=== PATIENT | male | born 1965 | race Caucasian/White ===

== ENCOUNTER 2018-11-18 05:58 | Inpatient (IN) ==
[2018-11-10 13:13] LABS: Basophils # 0.1 10*3/uL (0.0-0.2); Basophils % 0.7 % (0.0-0.8); Eosinophils # 0.2 10*3/uL (0.0-0.87); Eosinophils % 2.8 % (0.00-10.9); Hemoglobin 16.4 GM/DL (14.0-18.0); Immature Granulocytes % 0.7 %; Immature Granulocytes Absolute 0.06 #; Lymphocytes # 1.9 10*3/uL (1.4-4.0); Mean Corpuscular HGB Conc 32.8 GM/DL (32-36); Mean Corpuscular Volume 87.1 FL (87-102); Monocytes % 11.1 % (1.7-12.7); Neutrophils % 61.7 % (38.7-73.9); Platelet Count 249 T/CUMM (130-400); Red Blood Count 5.74 MC/CUMM (3.8-5.5); Red Cell Distribution Width 14.1 % (9.3-17.3); White Blood Count 8.2 T/CUMM (4-12)
[2018-11-10 13:39] LABS: Bilirubin,Total 0.4 MG/DL (0.2-1.0); Calcium 8.7 MG/DL (8.5-10.1); Osmolality,Calculated 279.1 MOS/KG (273-304); Total Protein 7.1 G/DL (6.4-8.3)
[~2018-11-18 05:58] MED LIST: ALVIMOPAN 12 MG CAPSULE ONE; ERTAPENEM 1,000 MG VIAL ONE; FAMOTIDINE 20 MG TABLET ONE
[2018-11-18] MEDS ORDERED: FAMOTIDINE 20 MG TABLET PO ONE (06:00)
[2018-11-18] MEDS ORDERED: TISSUE ADHESIVE 1 EACH APPLICATOR TOP ONE (06:29)
[2018-11-18] MEDS ORDERED: LIDOCAINE 1% 20 ML VIAL ONE (06:29)
[2018-11-18] MEDS ORDERED: BUPIVACAINE MPF 0.25% 30 ML VIAL ONE ×2 (06:29→09:14)
[2018-11-18] MEDS: LACTATED RINGERS 1,000 ML IV SCH ×2 (06:30→13:54)
[2018-11-18] MEDS ORDERED: ERTAPENEM 1,000 MG in SODIUM CHLORIDE 0.9% 100 ML IV ONE (06:30)
[2018-11-18] MEDS ORDERED: ALVIMOPAN 12 MG CAPSULE PO ONE (06:30)
[2018-11-18] MEDS ORDERED: INDOCYANINE GREEN 25 MG VIAL IV ONE (08:38)
[2018-11-18] MEDS ORDERED: EPINEPHrine 1 MG/ML VIAL ONE (09:13)
[2018-11-18] MEDS ORDERED: DEXAMETHASONE 4 MG/1 ML VIAL ONE ×2 (09:13→09:54)
[2018-11-18] MEDS ORDERED: CETIRIZINE 10 MG TABLET PO PRN (09:34)
[2018-11-18] MEDS ORDERED: PHENYLEPHRINE DRIP 20 MG/250 ML PREMIX IV ONE (09:53)
[2018-11-18] MEDS ORDERED: PROPOFOL 200 MG/20 ML VIAL IV ONE (09:53)
[2018-11-18] MEDS ORDERED: SEVOFLURANE 1 UNIT/15 MINUTE INH ONE (09:53)
[2018-11-18] MEDS ORDERED: PHENYLEPHRINE 1 MG/10 ML SYRINGE IV ONE (09:54)
[2018-11-18] MEDS ORDERED: fentaNYL 100 MCG/2 ML VIAL ONE (09:54)
[2018-11-18] MEDS ORDERED: ONDANSETRON 4 MG/2 ML VIAL ONE (09:54)
[2018-11-18] MEDS ORDERED: MIDAZOLAM 2 MG/2 ML VIAL ONE (09:54)
[2018-11-18] MEDS ORDERED: LACTATED RINGERS 2,000 ML IV ONE (09:55)
[2018-11-18] MEDS ORDERED: ROCURONIUM 100 MG/10 ML VIAL IV ONE (09:55)
[2018-11-18] MEDS ORDERED: SUCCINYLCHOLINE 200 MG/10 ML VIAL ONE (09:55)
[2018-11-18] MEDS ORDERED: SODIUM CHLORIDE 0.9% 250 ML IV ONE (09:56)
[2018-11-18] MEDS ORDERED: LIDOCAINE 2% 5 ML VIAL ONE (09:56)
[2018-11-18] MEDS ORDERED: NEOSTIGMINE 10 MG/10 ML VIAL ONE (10:01)
[2018-11-18] MEDS ORDERED: GLYCOPYRROLATE 0.4 MG/2 ML VIAL ONE (10:01)
[2018-11-18] MEDS ORDERED: ONDANSETRON 4 MG/2 ML VIAL IV PRN (10:02)
[2018-11-18] MEDS ORDERED: HYDROmorphone 2 MG/1 ML VIAL IV PRN (10:02)
[2018-11-18] MEDS: ONDANSETRON 4 MG/2 ML VIAL IV PRN ×2 (10:08→14:15)
[2018-11-18] MEDS: MORPHINE 4 MG/1 ML VIAL IV PRN ×2 (14:15→20:03)
[2018-11-18] MEDS: SIMETHICONE CHEW 125 MG TABLET PO PRN (14:16)
[2018-11-18] MEDS ORDERED: PHENOL 1.4% THROAT SPRAY 177 ML BOTTLE PO PRN (19:42)
[2018-11-18] MEDS: PIPERACILLIN/TAZOBACTAM 3,375 MG in SODIUM CHLORIDE 0.9% 100 ML IV SCH (20:03)
[2018-11-18] MEDS: PROPRANOLOL 40 MG TABLET PO SCH (21:00)
[2018-11-18] MEDS: TAMSULOSIN 0.4 MG CAPSULE PO SCH (21:00)
[2018-11-19] MEDS: DEXTROSE 5% LACTATED RINGERS 1,000 ML IV SCH ×4 (02:04→19:08)
[2018-11-19] MEDS: PIPERACILLIN/TAZOBACTAM 3,375 MG in SODIUM CHLORIDE 0.9% 100 ML IV SCH ×3 (03:04→21:01)
[2018-11-19] MEDS: ENOXAPARIN 40 MG/0.4 ML SYRINGE SUBCUT SCH (03:05)
[2018-11-19 05:12] LABS: Basophils % 0.2 % (0.0-0.8); Hematocrit 51.6 VOL% (42.0-52.0); Hemoglobin 16.6 GM/DL (14.0-18.0); Immature Granulocytes % 0.5 %; Immature Granulocytes Absolute 0.08 #; Lymphocytes # 0.9 10*3/uL (1.4-4.0); Lymphocytes % 5.9 % (21.2-54.2); Mean Corpuscular HGB Conc 32.2 GM/DL (32-36); Mean Corpuscular Volume 88.1 FL (87-102); Mean Platelet Volume 12.1 FL (9.6-12.0); Monocytes % 10.1 % (1.7-12.7); Neutrophils % 83.3 % (38.7-73.9); Platelet Count 225 T/CUMM (130-400); Red Blood Count 5.86 MC/CUMM (3.8-5.5); Red Cell Distribution Width 14.4 % (9.3-17.3); White Blood Count 14.7 T/CUMM (4-12)
[2018-11-19 05:43] LABS: Calcium 8.5 MG/DL (8.5-10.1); Osmolality,Calculated 280.3 MOS/KG (273-304)
[2018-11-19] MEDS ORDERED: TADALAFIL 5 MG PO SCH (09:00)
[2018-11-19] MEDS: PROPRANOLOL 40 MG TABLET PO SCH ×2 (10:03→21:03)
[2018-11-19] MEDS: FAMOTIDINE 20 MG TABLET PO SCH (10:04)
[2018-11-19] MEDS: SIMVASTATIN 10 MG TABLET PO SCH (10:10)
[2018-11-19] MEDS: CELECOXIB 200 MG CAPSULE PO PRN (10:16)
[2018-11-19] MEDS: LACTATED RINGERS 1,000 ML IV SCH (12:56)
[2018-11-19] MEDS: TAMSULOSIN 0.4 MG CAPSULE PO SCH (21:03)
[2018-11-20] MEDS: PIPERACILLIN/TAZOBACTAM 3,375 MG in SODIUM CHLORIDE 0.9% 100 ML IV SCH ×3 (04:27→19:45)
[2018-11-20] MEDS: ENOXAPARIN 40 MG/0.4 ML SYRINGE SUBCUT SCH (04:28)
[2018-11-20] MEDS: DEXTROSE 5% LACTATED RINGERS 1,000 ML IV SCH (05:38)
[2018-11-20] MEDS: CELECOXIB 200 MG CAPSULE PO PRN (10:44)
[2018-11-20] MEDS: PROPRANOLOL 40 MG TABLET PO SCH ×2 (10:44→21:04)
[2018-11-20] MEDS: FAMOTIDINE 20 MG TABLET PO SCH (10:44)
[2018-11-20] MEDS: TAMSULOSIN 0.4 MG CAPSULE PO SCH ×2 (10:45→21:05)
[2018-11-20] MEDS: SIMVASTATIN 10 MG TABLET PO SCH (11:19)
[2018-11-20] MEDS: LACTATED RINGERS 1,000 ML IV SCH (11:20)
[2018-11-21] MEDS: PIPERACILLIN/TAZOBACTAM 3,375 MG in SODIUM CHLORIDE 0.9% 100 ML IV SCH (04:28)
[2018-11-21] MEDS: ENOXAPARIN 40 MG/0.4 ML SYRINGE SUBCUT SCH (04:28)
[2018-11-21 05:16] LABS: Basophils # 0.1 10*3/uL (0.0-0.2); Basophils % 0.7 % (0.0-0.8); Eosinophils # 0.2 10*3/uL (0.0-0.87); Eosinophils % 1.8 % (0.00-10.9); Hemoglobin 15.2 GM/DL (14.0-18.0); Immature Granulocytes % 0.8 %; Immature Granulocytes Absolute 0.07 #; Lymphocytes % 23.2 % (21.2-54.2); Mean Corpuscular HGB Conc 32.3 GM/DL (32-36); Mean Corpuscular Volume 89.7 FL (87-102); Mean Platelet Volume 11.6 FL (9.6-12.0); Monocytes % 15.1 % (1.7-12.7); Neutrophils % 58.4 % (38.7-73.9); Platelet Count 157 T/CUMM (130-400); Red Blood Count 5.24 MC/CUMM (3.8-5.5); White Blood Count 8.8 T/CUMM (4-12)
[2018-11-21] MEDS: SIMETHICONE CHEW 125 MG TABLET PO PRN (09:21)
[2018-11-21] MEDS: PROPRANOLOL 40 MG TABLET PO SCH (09:21)
[2018-11-21] MEDS: FAMOTIDINE 20 MG TABLET PO SCH (09:22)
[2018-11-21] MEDS: SIMVASTATIN 10 MG TABLET PO SCH (09:22)
[2018-11-21] MEDS: LACTATED RINGERS 1,000 ML IV SCH (09:22)
[2018-11-21] MEDS: TAMSULOSIN 0.4 MG CAPSULE PO SCH (09:22)
[2018-11-21] MEDS ORDERED: ERTAPENEM 1,000 MG in SODIUM CHLORIDE 0.9% 100 ML IV SCH (09:30)
[2018-11-21 11:13] VITALS: BP 139/82
== END 2018-11-21 12:40 | disposition home or self-care (01) | DRG 356 ==
LOC: N.SDSINP 05:58 → N.OR 05:58 → N.SDSINP 05:59 → N.3E 10:46
PROVIDERS: ADMIT Surgery; ATTEND Surgery

== ENCOUNTER 2019-01-06 11:05 | Inpatient (IN) ==
[2019-01-06] MEDS ORDERED: BISACODYL 5 MG TABLET PO PRN (12:16)
[2019-01-06] MEDS ORDERED: ONDANSETRON 4 MG/2 ML VIAL IV PRN (12:16)
[2019-01-06] MEDS ORDERED: KETOROLAC 10 MG TABLET PO PRN (12:16)
[2019-01-06] MEDS ORDERED: ACETAMINOPHEN 325 MG TABLET PO PRN (12:16)
[2019-01-06] MEDS ORDERED: ALBUTEROL/IPRATROPIUM 3 ML NEB RESP TX PRN (12:16)
[2019-01-06] MEDS ORDERED: HYDROmorphone 2 MG/1 ML VIAL IV PRN (12:16)
[2019-01-06 12:32] LABS: Basophils % 0.5 % (0.0-0.8); Eosinophils # 0.2 10*3/uL (0.0-0.87); Eosinophils % 1.9 % (0.00-10.9); Hematocrit 49.7 VOL% (42.0-52.0); Hemoglobin 16.6 GM/DL (14.0-18.0); Immature Granulocytes % 0.5 %; Immature Granulocytes Absolute 0.04 #; Lymphocytes # 1.4 10*3/uL (1.4-4.0); Lymphocytes % 16.6 % (21.2-54.2); Mean Corpuscular HGB Conc 33.4 GM/DL (32-36); Mean Corpuscular Volume 83.1 FL (87-102); Monocytes % 10.2 % (1.7-12.7); Neutrophils % 70.3 % (38.7-73.9); Platelet Count 237 T/CUMM (130-400); Red Blood Count 5.98 MC/CUMM (3.8-5.5); Red Cell Distribution Width 14.2 % (9.3-17.3); White Blood Count 8.4 T/CUMM (4-12)
[2019-01-06 12:50] LABS: Albumin 3.1 G/DL (3.4-5.0); Bilirubin,Total 0.8 MG/DL (0.2-1.0); Calcium 9.2 MG/DL (8.5-10.1); Osmolality,Calculated 270.7 MOS/KG (273-304); Total Protein 7.9 G/DL (6.4-8.3)
[2019-01-06] MEDS: LACTATED RINGERS 1,000 ML IV SCH (13:02)
[2019-01-06] MEDS: metroNIDAZOLE INJ 500 MG in PREMIX 1 EACH IV SCH ×2 (13:03→21:27)
[2019-01-06] MEDS: PIPERACILLIN/TAZOBACTAM 3,375 MG in SODIUM CHLORIDE 0.9% 100 ML IV SCH ×2 (14:48→23:58)
[2019-01-06 15:17] LABS: Apearance,Urine CLEAR (Clear); Bacteria,Urine Occasional /HPF (Few); Bilirubin,Urine Negative (Negative); Blood, Urine Negative (Negative); Glucose,Urine (UA) Negative (Negative); Ketones,Urine 80 mg/dL (Negative); Mucus,Urine Occasional /LPF (Occasional); Nitrite,Urine Negative (Negative); Protein,Urine Negative; RBC,Urine 2 /HPF (0-4); Squamous Epithelial Cell,Urine Occasional /HPF (0-10); Urine Color Yellow (Yellow); Urine Specific Gravity 1.055 (1.001-1.035); Urine Urobilinogen < 2.0 EU/DL (0.2-1.0); WBC,Urine <1 /HPF (0-6)
[2019-01-07] MEDS: metroNIDAZOLE INJ 500 MG in PREMIX 1 EACH IV SCH ×3 (03:30→22:26)
[2019-01-07] MEDS: LACTATED RINGERS 1,000 ML IV SCH ×3 (06:27→14:54)
[2019-01-07] MEDS: PIPERACILLIN/TAZOBACTAM 3,375 MG in SODIUM CHLORIDE 0.9% 100 ML IV SCH ×3 (06:29→23:43)
[2019-01-07] MEDS: PANTOPRAZOLE 40 MG TABLET PO SCH (10:07)
[2019-01-07] MEDS ORDERED: CETIRIZINE 10 MG TABLET PO PRN (12:57)
[2019-01-07] MEDS ORDERED: CELECOXIB 200 MG CAPSULE PO PRN (12:57)
[2019-01-07] MEDS ORDERED: Tadalafil [Cialis] 5 MG PO SCH (13:00)
[2019-01-07] MEDS: PROPRANOLOL 40 MG TABLET PO SCH ×2 (14:52→22:48)
[2019-01-07] MEDS: SIMVASTATIN 10 MG TABLET PO SCH ×2 (14:52→15:12)
[2019-01-07] MEDS: FAMOTIDINE 20 MG TABLET PO SCH (14:52)
[2019-01-07] MEDS: TAMSULOSIN 0.4 MG CAPSULE PO SCH (22:46)
[2019-01-08] MEDS: metroNIDAZOLE INJ 500 MG in PREMIX 1 EACH IV SCH ×3 (04:05→21:35)
[2019-01-08] MEDS: PIPERACILLIN/TAZOBACTAM 3,375 MG in SODIUM CHLORIDE 0.9% 100 ML IV SCH ×3 (06:32→23:22)
[2019-01-08] MEDS: LACTATED RINGERS 1,000 ML IV SCH ×3 (06:35→19:55)
[2019-01-08] MEDS: FAMOTIDINE 20 MG TABLET PO SCH (08:23)
[2019-01-08] MEDS: PANTOPRAZOLE 40 MG TABLET PO SCH (08:23)
[2019-01-08] MEDS: PROPRANOLOL 40 MG TABLET PO SCH ×2 (08:23→21:35)
[2019-01-08] MEDS: MULTIVITAMIN (CENTRUM) TABLET PO SCH (08:23)
[2019-01-08] MEDS: COENZYME Q10 100 MG CAPSULE PO SCH (08:24)
[2019-01-08] MEDS: TAMSULOSIN 0.4 MG CAPSULE PO SCH (21:35)
[2019-01-09] MEDS: metroNIDAZOLE INJ 500 MG in PREMIX 1 EACH IV SCH ×2 (04:29→12:44)
[2019-01-09] MEDS: PIPERACILLIN/TAZOBACTAM 3,375 MG in SODIUM CHLORIDE 0.9% 100 ML IV SCH (06:06)
[2019-01-09] MEDS: LACTATED RINGERS 1,000 ML IV SCH (06:06)
[2019-01-09] MEDS: MULTIVITAMIN (CENTRUM) TABLET PO SCH (10:50)
[2019-01-09] MEDS: PROPRANOLOL 40 MG TABLET PO SCH (10:50)
[2019-01-09] MEDS: FAMOTIDINE 20 MG TABLET PO SCH (10:51)
[2019-01-09] MEDS: PANTOPRAZOLE 40 MG TABLET PO SCH (10:51)
[2019-01-09] MEDS: COENZYME Q10 100 MG CAPSULE PO SCH (10:51)
[2019-01-09 11:54] VITALS: BP 125/72
== END 2019-01-09 16:17 | disposition home or self-care (01) | DRG 392 ==
LOC: N.3E
PROVIDERS: ADMIT Surgery; ATTEND Surgery

== ENCOUNTER 2019-01-16 09:33 | Inpatient (IN) ==
[~2019-01-16 09:33] MED LIST changes: -ALVIMOPAN 12 MG CAPSULE ONE; +ERTAPENEM 1,000 MG in SODIUM CHLORIDE 0.9% 100 ML IV ONE; -FAMOTIDINE 20 MG TABLET ONE; +LACTATED RINGERS 1,000 ML IV SCH
[2019-01-16] MEDS ORDERED: INDOCYANINE GREEN 25 MG VIAL IV ONE (11:03)
[2019-01-16] MEDS ORDERED: LIDOCAINE 1%/EPI INJ 20 ML VIAL ONE (13:01)
[2019-01-16] MEDS ORDERED: BUPIVACAINE MPF 0.25% 30 ML VIAL ONE ×2 (13:01→13:04)
[2019-01-16] MEDS ORDERED: ONDANSETRON 4 MG/2 ML VIAL IV PRN ×2 (15:53→16:31)
[2019-01-16] MEDS ORDERED: LIDOCAINE 2% 20 ML VIAL ONE (15:53)
[2019-01-16] MEDS ORDERED: DEXAMETHASONE 4 MG/1 ML VIAL ONE (15:54)
[2019-01-16] MEDS ORDERED: EPINEPHrine 1 MG/ML VIAL ONE (15:54)
[2019-01-16] MEDS ORDERED: BUPIVACAINE 0.5% 50 ML VIAL ONE (15:55)
[2019-01-16] MEDS ORDERED: PROPOFOL 200 MG/20 ML VIAL IV ONE (16:20)
[2019-01-16] MEDS ORDERED: LIDOCAINE 2% 5 ML VIAL ONE (16:21)
[2019-01-16] MEDS ORDERED: SEVOFLURANE 1 UNIT/15 MINUTE INH ONE (16:21)
[2019-01-16] MEDS ORDERED: KETOROLAC 30 MG/1 ML VIAL ONE (16:21)
[2019-01-16] MEDS ORDERED: fentaNYL 250 MCG/5 ML VIAL ONE (16:21)
[2019-01-16] MEDS ORDERED: MIDAZOLAM 2 MG/2 ML VIAL ONE (16:21)
[2019-01-16] MEDS ORDERED: ONDANSETRON 4 MG/2 ML VIAL ONE (16:21)
[2019-01-16] MEDS ORDERED: ePHEDrine 50 MG/ML AMP ONE (16:21)
[2019-01-16] MEDS ORDERED: fentaNYL 100 MCG/2 ML VIAL ONE (16:21)
[2019-01-16] MEDS ORDERED: ROCURONIUM 100 MG/10 ML VIAL IV ONE (16:22)
[2019-01-16] MEDS ORDERED: PHENYLEPHRINE 1 MG/10 ML SYRINGE IV ONE (16:22)
[2019-01-16] MEDS ORDERED: GLYCOPYRROLATE 0.4 MG/2 ML VIAL ONE (16:22)
[2019-01-16] MEDS ORDERED: NEOSTIGMINE 10 MG/10 ML VIAL ONE (16:22)
[2019-01-16] MEDS ORDERED: LACTATED RINGERS 3,000 ML IV ONE (16:22)
[2019-01-16] MEDS: HYDROmorphone 2 MG/1 ML VIAL IV PRN ×6 (16:28→21:15)
[2019-01-16] MEDS ORDERED: HYDROmorphone 2 MG/1 ML VIAL ONE (16:33)
[2019-01-16] MEDS: DEXTROSE 5% LACTATED RINGERS 1,000 ML IV SCH (16:54)
[2019-01-16 18:00] LABS: Hematocrit 48.2 VOL% (42.0-52.0); Hemoglobin 15.7 GM/DL (14.0-18.0)
[2019-01-16] MEDS: ALBUTEROL/IPRATROPIUM 3 ML NEB RESP TX SCH (20:05)
[2019-01-16] MEDS: ERTAPENEM 1,000 MG in SODIUM CHLORIDE 0.9% 100 ML IV SCH (20:32)
[2019-01-16] MEDS: PROPRANOLOL 40 MG TABLET PO SCH (20:32)
[2019-01-17] MEDS: ALBUTEROL/IPRATROPIUM 3 ML NEB RESP TX SCH ×4 (01:05→19:40)
[2019-01-17 01:22] LABS: Hematocrit 48.2 VOL% (42.0-52.0); Hemoglobin 15.8 GM/DL (14.0-18.0)
[2019-01-17] MEDS: HYDROmorphone 2 MG/1 ML VIAL IV PRN ×6 (03:37→23:35)
[2019-01-17] MEDS: DEXTROSE 5% LACTATED RINGERS 1,000 ML IV SCH ×3 (04:25→13:31)
[2019-01-17 06:42] LABS: Basophils % 0.2 % (0.0-0.8); Eosinophils % 0.1 % (0.00-10.9); Hematocrit 48.5 VOL% (42.0-52.0); Hemoglobin 15.4 GM/DL (14.0-18.0); Immature Granulocytes % 0.4 %; Immature Granulocytes Absolute 0.04 #; Lymphocytes # 0.7 10*3/uL (1.4-4.0); Lymphocytes % 6.5 % (21.2-54.2); Mean Corpuscular HGB Conc 31.8 GM/DL (32-36); Mean Corpuscular Volume 87.2 FL (87-102); Mean Platelet Volume 11.5 FL (9.6-12.0); Monocytes % 11.7 % (1.7-12.7); Neutrophils % 81.1 % (38.7-73.9); Platelet Count 313 T/CUMM (130-400); Red Blood Count 5.56 MC/CUMM (3.8-5.5); White Blood Count 10.6 T/CUMM (4-12)
[2019-01-17 07:16] LABS: Calcium 8.4 MG/DL (8.5-10.1); Osmolality,Calculated 276.4 MOS/KG (273-304)
[2019-01-17 08:38] LABS: Hematocrit 47.1 VOL% (42.0-52.0); Hemoglobin 15.1 GM/DL (14.0-18.0)
[2019-01-17] MEDS: PANTOPRAZOLE 40 MG TABLET PO SCH (09:20)
[2019-01-17] MEDS: PROPRANOLOL 40 MG TABLET PO SCH ×2 (09:21→20:44)
[2019-01-17] MEDS ORDERED: KETOROLAC 15 MG/1 ML VIAL IV PRN (15:55)
[2019-01-17] MEDS: SODIUM HYPOCHLORITE 0.25% IRRIG 473 ML BOTTLE TOP SCH (16:03)
[2019-01-17] MEDS: oxyCODONE/ACETAMINOPHEN 5-325 MG TABLET PO PRN ×2 (16:58→20:44)
[2019-01-17] MEDS: SIMETHICONE CHEW 80 MG TABLET PO PRN (19:30)
[2019-01-17] MEDS: ERTAPENEM 1,000 MG in SODIUM CHLORIDE 0.9% 100 ML IV SCH (20:35)
[2019-01-18] MEDS: ALBUTEROL/IPRATROPIUM 3 ML NEB RESP TX SCH ×4 (01:00→19:46)
[2019-01-18] MEDS: DEXTROSE 5% LACTATED RINGERS 1,000 ML IV SCH ×3 (03:44→15:08)
[2019-01-18] MEDS: PROPRANOLOL 40 MG TABLET PO SCH ×2 (08:35→21:35)
[2019-01-18] MEDS: TAMSULOSIN 0.4 MG CAPSULE PO SCH (08:35)
[2019-01-18] MEDS: PANTOPRAZOLE 40 MG TABLET PO SCH (08:35)
[2019-01-18] MEDS: SIMETHICONE CHEW 80 MG TABLET PO PRN ×2 (08:41→21:02)
[2019-01-18] MEDS: SODIUM HYPOCHLORITE 0.25% IRRIG 473 ML BOTTLE TOP SCH (16:23)
[2019-01-18] MEDS: oxyCODONE/ACETAMINOPHEN 5-325 MG TABLET PO PRN ×2 (16:23→19:34)
[2019-01-18] MEDS: ERTAPENEM 1,000 MG in SODIUM CHLORIDE 0.9% 100 ML IV SCH (20:48)
[2019-01-19] MEDS: ALBUTEROL/IPRATROPIUM 3 ML NEB RESP TX SCH ×4 (00:18→20:02)
[2019-01-19] MEDS: DEXTROSE 5% LACTATED RINGERS 1,000 ML IV SCH ×2 (05:04→18:58)
[2019-01-19 07:22] LABS: Basophils # 0.1 10*3/uL (0.0-0.2); Basophils % 0.7 % (0.0-0.8); Eosinophils # 0.2 10*3/uL (0.0-0.87); Eosinophils % 2.1 % (0.00-10.9); Hematocrit 43.4 VOL% (42.0-52.0); Hemoglobin 13.7 GM/DL (14.0-18.0); Immature Granulocytes % 0.4 %; Immature Granulocytes Absolute 0.03 #; Lymphocytes # 1.5 10*3/uL (1.4-4.0); Lymphocytes % 21.4 % (21.2-54.2); Mean Corpuscular HGB Conc 31.6 GM/DL (32-36); Mean Corpuscular Volume 87.5 FL (87-102); Mean Platelet Volume 11.5 FL (9.6-12.0); Neutrophils % 60.4 % (38.7-73.9); Platelet Count 259 T/CUMM (130-400); Red Blood Count 4.96 MC/CUMM (3.8-5.5); Red Cell Distribution Width 14.8 % (9.3-17.3)
[2019-01-19 07:36] LABS: Calcium 8.4 MG/DL (8.5-10.1); Osmolality,Calculated 277.3 MOS/KG (273-304)
[2019-01-19] MEDS: TAMSULOSIN 0.4 MG CAPSULE PO SCH ×2 (10:02→10:49)
[2019-01-19] MEDS: SODIUM HYPOCHLORITE 0.25% IRRIG 473 ML BOTTLE TOP SCH ×2 (10:02→10:50)
[2019-01-19] MEDS: PANTOPRAZOLE 40 MG TABLET PO SCH ×2 (10:02→10:49)
[2019-01-19] MEDS: PROPRANOLOL 40 MG TABLET PO SCH ×3 (10:02→21:11)
[2019-01-19] MEDS: oxyCODONE/ACETAMINOPHEN 5-325 MG TABLET PO PRN ×3 (13:21→20:30)
[2019-01-19] MEDS: ERTAPENEM 1,000 MG in SODIUM CHLORIDE 0.9% 100 ML IV SCH (20:29)
[2019-01-19] MEDS: ENOXAPARIN 40 MG/0.4 ML SYRINGE SUBCUT SCH (20:29)
[2019-01-19] MEDS: SIMETHICONE CHEW 80 MG TABLET PO PRN (21:11)
[2019-01-20] MEDS: ALBUTEROL/IPRATROPIUM 3 ML NEB RESP TX SCH ×4 (00:36→20:48)
[2019-01-20] MEDS: SODIUM HYPOCHLORITE 0.25% IRRIG 473 ML BOTTLE TOP SCH (07:59)
[2019-01-20] MEDS: PANTOPRAZOLE 40 MG TABLET PO SCH (07:59)
[2019-01-20] MEDS: TAMSULOSIN 0.4 MG CAPSULE PO SCH (07:59)
[2019-01-20] MEDS: PROPRANOLOL 40 MG TABLET PO SCH ×2 (08:45→21:39)
[2019-01-20] MEDS: DEXTROSE 5% LACTATED RINGERS 1,000 ML IV SCH ×2 (08:47→21:40)
[2019-01-20] MEDS ORDERED: fentaNYL 100 MCG/2 ML VIAL ONE (16:28)
[2019-01-20] MEDS ORDERED: ONDANSETRON 4 MG/2 ML VIAL ONE (16:28)
[2019-01-20] MEDS ORDERED: SEVOFLURANE 1 UNIT/15 MINUTE INH ONE (16:28)
[2019-01-20] MEDS ORDERED: PHENYLEPHRINE 1 MG/10 ML SYRINGE IV ONE (16:28)
[2019-01-20] MEDS ORDERED: LIDOCAINE 2% 5 ML VIAL ONE (16:28)
[2019-01-20] MEDS ORDERED: DEXAMETHASONE 4 MG/1 ML VIAL ONE (16:28)
[2019-01-20] MEDS ORDERED: PROPOFOL 200 MG/20 ML VIAL IV ONE (16:28)
[2019-01-20] MEDS: HYDROmorphone 2 MG/1 ML VIAL IV PRN (18:22)
[2019-01-20] MEDS: oxyCODONE/ACETAMINOPHEN 5-325 MG TABLET PO PRN ×2 (18:48→23:31)
[2019-01-20] MEDS: ERTAPENEM 1,000 MG in SODIUM CHLORIDE 0.9% 100 ML IV SCH (21:36)
[2019-01-20] MEDS: ENOXAPARIN 40 MG/0.4 ML SYRINGE SUBCUT SCH (21:39)
[2019-01-20] MEDS: SIMETHICONE CHEW 80 MG TABLET PO PRN (23:33)
[2019-01-21] MEDS: ALBUTEROL/IPRATROPIUM 3 ML NEB RESP TX SCH ×4 (01:02→19:50)
[2019-01-21] MEDS: PANTOPRAZOLE 40 MG TABLET PO SCH (08:59)
[2019-01-21] MEDS: TAMSULOSIN 0.4 MG CAPSULE PO SCH (08:59)
[2019-01-21] MEDS: PROPRANOLOL 40 MG TABLET PO SCH ×2 (08:59→21:18)
[2019-01-21] MEDS: SODIUM HYPOCHLORITE 0.25% IRRIG 473 ML BOTTLE TOP SCH (09:00)
[2019-01-21] MEDS: DEXTROSE 5% LACTATED RINGERS 1,000 ML IV SCH (11:30)
[2019-01-21] MEDS: oxyCODONE/ACETAMINOPHEN 5-325 MG TABLET PO PRN ×2 (16:28→21:17)
[2019-01-21] MEDS: ENOXAPARIN 40 MG/0.4 ML SYRINGE SUBCUT SCH (21:18)
[2019-01-21] MEDS: ERTAPENEM 1,000 MG in SODIUM CHLORIDE 0.9% 100 ML IV SCH (21:18)
[2019-01-22] MEDS: DEXTROSE 5% LACTATED RINGERS 1,000 ML IV SCH ×2 (00:10→14:02)
[2019-01-22] MEDS: ALBUTEROL/IPRATROPIUM 3 ML NEB RESP TX SCH ×4 (00:40→20:47)
[2019-01-22] MEDS: SODIUM HYPOCHLORITE 0.25% IRRIG 473 ML BOTTLE TOP SCH (09:02)
[2019-01-22] MEDS: PANTOPRAZOLE 40 MG TABLET PO SCH (09:03)
[2019-01-22] MEDS: TAMSULOSIN 0.4 MG CAPSULE PO SCH (09:03)
[2019-01-22] MEDS: PROPRANOLOL 40 MG TABLET PO SCH ×2 (09:03→20:57)
[2019-01-22] MEDS: ENOXAPARIN 40 MG/0.4 ML SYRINGE SUBCUT SCH (20:57)
[2019-01-22] MEDS: ERTAPENEM 1,000 MG in SODIUM CHLORIDE 0.9% 100 ML IV SCH (20:57)
[2019-01-22] MEDS: oxyCODONE/ACETAMINOPHEN 5-325 MG TABLET PO PRN (23:26)
[2019-01-23] MEDS: ALBUTEROL/IPRATROPIUM 3 ML NEB RESP TX SCH ×2 (01:19→08:25)
[2019-01-23] MEDS: DEXTROSE 5% LACTATED RINGERS 1,000 ML IV SCH (02:52)
[2019-01-23] MEDS: TAMSULOSIN 0.4 MG CAPSULE PO SCH (10:26)
[2019-01-23] MEDS: PROPRANOLOL 40 MG TABLET PO SCH (10:26)
[2019-01-23] MEDS: PANTOPRAZOLE 40 MG TABLET PO SCH (10:27)
[2019-01-23] MEDS: HYDROmorphone 2 MG/1 ML VIAL IV PRN (11:20)
[2019-01-23 11:50] VITALS: BP 121/66
== END 2019-01-23 13:20 | disposition home or self-care (01) | DRG 331 ==
LOC: N.PREADM 09:33 → N.SDSINP 09:34 → N.3E 17:18
PROVIDERS: ADMIT Surgery; ATTEND Surgery